=== PATIENT | female | born 1960 | race Asian ===

== ENCOUNTER 2017-08-17 12:33 | Emergency (ER) | END 2017-08-17 18:40 | disposition home or self-care (01) ==

== ENCOUNTER 2018-07-02 07:51 | Inpatient (IN) | payer OTHER ==
[~2018-07-02] VITALS: Ht 157.5 cm; Wt 61.1 kg
[~2018-07-02 07:51] MED LIST: ATEN-122; GLYB1TAB3 PO; LISI20TA; SIMV20TA2
[2018-07-02] MEDS ORDERED: ALBUTEROL 0.5% (NEB) 2.5 MG/0.5 ML AMP INH STA (08:19)
--- NOTE | 2018-07-02 08:19 | ERD ---
ER Documentation Chief Complaint Chief Complaint COUGH & CONGESTION X1 DAY HPI 57-year-old female history of diabetes and hypertension with one week history of cough and congestion and a 4-day history of fevers diagnosed with pneumonia and started on antibiotics by her PMD presented to the ED complaining of anorexia, ongoing generalized weakness, nonproductive cough and shortness of breath. Denies chest pain, palpitations, leg pain or swelling. No abdominal pain, nausea, vomiting, diarrhea or constipation. No fevers or chills. ROS All systems reviewed and are negative except as per history of present illness. Medications Home Meds Active Scripts Guaifenesin* (Robitussin*) 100 Mg/5 Ml Syrup, 200 MG PO Q4H PRN for COUGH, #100 ML [facility] 07/04/18 Insulin Aspart* (Novolog Insulin Pen*) 100 Unit/Ml Soln, 4 UNIT SC WITH MEALS, #4 VIAL Prov:[facility]. 07/04/18 [Insulin Glargine] 100 UNITS/ML SOLN No Conflict Check, 30 UNITS SC DAILY@1999, #9 VIAL 1 [facility]. 07/04/18 Losartan Potassium* (Losartan Potassium*) 25 Mg Tablet, 25 MG PO DAILY, #30 TAB Prov[facility]. 07/04/18 Aspirin* (Aspirin* EC) 81 Mg Tablet.dr, 81 MG PO DAILY, #30 TAB 2 Refills [facility]. 07/04/18 Atorvastatin Calcium* (Atorvastatin Calcium*) 20 Mg Tablet, 20 MG PO QHS, #30 TAB 2 Refills Prov[facility]. 07/04/18 Metformin* (Glucophage*) 850 Mg Tablet, 850 MG PO WITH BREAKFAST DINNE, #60 TAB 1 Refill Prov[facility]. 07/04/18 Amoxicillin/Potassium Clav (Amox-Clav 875-125 mg Tablet) 875-125 mg Tab, 1 TAB PO BID, #20 TAB [facility]. 07/04/18 Discontinued Reported Medications Insulin Degludec (Tresiba Flextouch U-100) 100 Unit/1 Ml Insuln.pen, 32 UNITS SC AM 07/02/18 Allergies Allergies: Coded Allergies: No Known Drug Allergies (Verified Allergy, Mild, 07/02/18) PMhx/Soc Reviewed in chart. As per HPI. History of Surgery: No Anesthesia Reaction: No Hx Neurological Disorder: No Hx Respiratory Disorders: No Hx Cardiac Disorders: Yes (htn, high cholesterol) Hx Psychiatric Problems: No Hx Miscellaneous Medical Probl: Yes (diabetes) Hx Alcohol Use: No Hx Substance Use: No Hx Tobacco Use: No Smoking Status: Never smoker FmHx Mother: Diabetes. No family history of stroke or cancer Physical Exam Vitals Temperature: 97.5. Pulse: 105. Respirations: 20. Blood pressure: 159/89. O2 saturation 95% on room air. Physical Exam Const: Alert, anxious, moderate distress. Head: Atraumatic Eyes: Normal Conjunctiva ENT: Normal External Ears, Nose and Mouth. Pharynx is clear without erythema or exudate. Mucous membranes are moist. Neck: Full range of motion. No meningismus. No JVD. Resp: Breath sounds diminished bilaterally with scattered rhonchi but no rales. 1+ expiratory wheezes. Cardio: Tachycardic. Regular rate and rhythm, no murmurs, rubs or gallops. Abd: Soft, non tender, non distended. No rebound or guarding. Normal bowel sounds Skin: No petechiae or rashes Back: No midline or flank tenderness Ext: No cyanosis, or edema Neur: Awake and alert. No focal deficit Psych: Anxious but not depressed. Results 24 hrs Laboratory Tests Test 07/02/18 08:12 07/02/18 08:21 Bedside Glucose 276 mg/dL White Blood Count 6.1 10^3/ul Red Blood Count 4.40 10^6/ul Hemoglobin 12.6 g/dl Hematocrit 37.3 % Mean Corpuscular Volume 84.8 fl Mean Corpuscular Hemoglobin 28.6 pg Mean Corpuscular Hemoglobin Concent 33.8 g/dl Red Cell Distribution Width 12.7 % Platelet Count 280 10^3/UL Mean Platelet Volume 9.7 fl Immature Granulocytes % 0.300 % Neutrophils % 67.1 % Lymphocytes % 25.2 % Monocytes % 7.0 % Eosinophils % 0.2 % Basophils % 0.2 % Nucleated Red Blood Cells % 0.0 /100WBC Immature Granulocytes # 0.020 10^3/ul Neutrophils # 4.1 10^3/ul Lymphocytes # 1.5 10^3/ul Monocytes # 0.4 10^3/ul Eosinophils # 0.0 10^3/ul Basophils # 0.0 10^3/ul Nucleated Red Blood Cells # 0.0 10^3/ul Sodium Level 140 mmol/L Potassium Level 4.4 mmol/L Chloride Level 100 mmol/L Carbon Dioxide Level 29 mmol/L Anion Gap 11 Blood Urea Nitrogen 10 mg/dl Creatinine 0.63 mg/dl Est Glomerular Filtrat Rate mL/min > 60 mL/min Glucose Level 280 mg/dl Calcium Level 9.8 mg/dl Troponin I < 0.012 ng/ml B-Type Natriuretic Peptide 94 PG/ML Current Medications Medications Dose Sig/Paulina Start Time Status Last (Trade) Ordered Route PRN Stop Time Admin Dose Reason Admin Albuterol 10 mg ONCE STAT 07/02/18 DC 07/02/18 (Proventil INH 08:19 09:04 0.5% (Neb)) 07/02/18 08:22 Ceftriaxone 50 ml @ ONCE STAT 07/02/18 DC 07/02/18 Sodium 100 mls/hr IVPB 10:00 10:15 07/02/18 10:29 Azithromycin 250 ml @ ONCE STAT 07/02/18 DC 07/02/18 250 mls/hr IV 10:00 10:44 07/02/18 10:59 Albuterol/ 3 ml Q6HWA RESP 07/02/18 DC 07/04/18 Ipratropium THERAPY HHN 14:00 13:31 (Duoneb) 07/04/18 17:29 Albuterol/ 3 ml Q2H RESP 07/02/18 DC Ipratropium THERAPY PRN 14:00 (Duoneb) HHN 07/04/18 17:29 shortness of breath Discontinue ONCE ONCE 07/02/18 DC Miscellaneous current oral XX 14:00 sulfonylur... 07/02/18 14:01 Information (* Miscellaneous Pharmacy Order) ONCE ONCE 07/02/18 DC Miscellaneous HYPOGLYCEMIA XX 14:00 PROTOCOL 07/02/18 14:01 Information w... (* Miscellaneous Pharmacy Order) Discontinue ONCE ONCE 07/02/18 DC Miscellaneous all previ... XX 14:00 07/02/18 14:01 Information (* Miscellaneous Pharmacy Order) IV Flush 3 ml PER 07/02/18 DC (NS 3 ml) PROTOCOL IV 14:00 07/04/18 17:29 Ondansetron 4 mg Q6H PRN 07/02/18 DC HCl (Zofran IV 14:00 Inj) NAUSEA/VOMITI 07/04/18 17:29 NG 650 mg Q6H PRN 07/02/18 DC Acetaminophen PO .PAIN 1-3 14:00 (Tylenol OR TEMP 07/04/18 17:29 Tab) 1 ea NOTE XX 07/02/18 DC Miscellaneous 14:00 Information 07/04/18 17:29 Glucose 15 gm Q15M PRN 07/02/18 DC (Glutose) PO DECREASED 14:00 GLUCOSE 07/04/18 17:29 Glucose 22.5 gm Q15M PRN 07/02/18 DC (Glutose) PO DECREASED 14:00 GLUCOSE 07/04/18 17:29 Dextrose 25 ml Q15M PRN 07/02/18 DC (D50w IV DECREASED 14:00 Syringe) GLUCOSE 07/04/18 17:29 Dextrose 50 ml Q15M PRN 07/02/18 DC (D50w IV DECREASED 14:00 Syringe) GLUCOSE 07/04/18 17:29 Glucagon 1 mg Q15M PRN 07/02/18 DC (Glucagen) IM DECREASED 14:00 GLUCOSE 07/04/18 17:29 Glucose 15 gm Q15M PRN 07/02/18 DC (Glutose) BUCCAL 14:00 DECREASED 07/04/18 17:29 GLUCOSE Procedures/MDM DOCUMENTS REVIEWED: ED nurse, prior records EKG: Time: 08:47. Sinus rhythm. Ventricular rate 85. Nonspecific T wave changes. No acute ST segment elevation or depression. No ectopy. My Interpretation IMAGING: PROCEDURE: XR Chest. CLINICAL INDICATION: shortness of breath TECHNIQUE: Single portable view of the chest was obtained COMPARISON: CR CHEST 05/09/2013 FINDINGS: There is mild cardiomegaly. There is mild pulmonary vascular congestion. There are bilateral perihilar and lower lobe increased interstitial changes. There is no pleural effusion.. There is no pneumothorax. RPTAT: AA IMPRESSION: Mild cardiomegaly with pulmonary vascular congestion. Patchy bilateral perihilar and lower lobe infiltrates. .Baljit Gomez MD MD Date Time Electronically viewed and signed by .Baljit Gomez MD, MD on 07/02/2018 08:38 .S/ MEDICAL DECISION MAKIN-year-old female history of diabetes and hypertension with one week history of cough and congestion and a 4-day history of fevers diagnosed with pneumonia and started on antibiotics by her PMD presented to the ED complaining of anorexia, ongoing generalized weakness, nonproductive cough and shortness of breath. CBC to evaluate for leukocytosis, anemia and thrombocytopenia is unremarkable. Chemistry reveals mild hyperglycemia but no anion gap acidosis, electrolyte abnormalities or renal insufficiency. Troponin is not elevated. EKG reveals no evidence of ischemia or dysrhythmia. Influenza is negative. Chest x-ray reveals mild cardiomegaly with pulmonary vascular congestion and patchy lower lobe infiltrates. No chest pain, ischemic EKG changes, elevated troponin or acute coronary syndrome. Respiratory symptoms improved with nebulized beta agonists but she is still symptomatic. Findings consistent with pneumonia although a component of congestive heart failure will need to be ruled out. No criteria for systemic inflammatory response syndrome. Antibiotics for community-acquired pneumonia are administered after cultures. Admit to [facility] for further evaluation and management. REEXAMINATION/REEVALUATION: Time: 09:40. Vital signs as documented. Mild improvement with nebulized albuterol Time: 11:08. Vital signs as per nursing note. Still complaining of shortness of breath and cough. Time: 13:20. Vital signs as per nursing note. Ongoing shortness of breath with increasing tachypnea and mild wheezing. OBSERVATION NOTE: At 08:37 the patient was entered into observation status to es tablish the need for admission. During this time the patient was treated for acute dyspnea and cough. Additionally, extensive evaluation including, CBC, chemistry, blood cultures, EKG, troponin and chest x-ray were preformed with results interpreted as above. Vitals signs were monitored and multiple, frequent reexaminations were performed. At 13:20 the patient was reexamined; on going shortness of breath and cough. Based on these findings the patient was discharged from observation as it was determined that the patient met criteria for admission. Family history significant for diabetes but no hypertension or stroke TOTAL OBSERVATION TIME: 4.5 Hours. PATIENT CARE TRANSITIONED: Time: 13:35, Dr. Overton. Counseled patient regarding diagnosis, diagnostic results and plan for admission. Departure Diagnosis: Primary Impression: Shortness of breath Additional Impressions: Cough Pneumonia Pneumonia type: due to unspecified organism Laterality: bilateral Lung location: lower lobe of lung Qualified Codes: J18.1 - Lobar pneumonia, unspecified organism Diabetes mellitus type 2 in nonobese Condition: Serious SANCHO SANTIAGO MD Jul 02, 2018 08:19
[2018-07-02] MEDS ORDERED: INSU100I31 SC (08:57)
[2018-07-02] MEDS ORDERED: CEFTRIAXONE 1 GM/50 ML (PMX) 50 ML IVPB STA (10:00)
[2018-07-02] MEDS ORDERED: AZITHROMYCIN 500MG/NS (PMX) 250 ML IV STA (10:00)
[2018-07-02] MEDS ORDERED: NACL 0.9% 3 ML SYG IV SCH (14:00)
[2018-07-02] MEDS ORDERED: GLUCOSE GEL 15 GRAM TUBE BUCCAL PRN (14:00)
[2018-07-02] MEDS ORDERED: ALBUTEROL/IPRATROPIUM (NEB) 3 ML AMP HHN PRN (14:00)
[2018-07-02] MEDS ORDERED: GLUCAGON 1 MG INJ IM PRN (14:00)
[2018-07-02] MEDS ORDERED: ONDANSETRON 4 MG INJ IV PRN ×2 (14:00→15:00)
[2018-07-02] MEDS ORDERED: ACETAMINOPHEN 325 MG TAB PO PRN ×2 (14:00→15:00)
[2018-07-02] MEDS ORDERED: GLUCOSE GEL 15 GRAM TUBE PO PRN ×2 (14:00)
[2018-07-02] MEDS ORDERED: DEXTROSE 50% 50 ML SYRINGE IV PRN ×2 (14:00)
[2018-07-02] MEDS: ALBUTEROL/IPRATROPIUM (NEB) 3 ML AMP HHN SCH ×2 (15:44→20:28)
[2018-07-02 16:45] VITALS: Ht 157.5 cm; Wt 61.1 kg
[2018-07-02] MEDS ORDERED: GUAIFENESIN/CODEINE 5ML CUP PO PRN (17:00)
[2018-07-02] MEDS ORDERED: SOD CHLORIDE 0.9% 1,000 ML IV SCH (17:00)
--- NOTE | 2018-07-02 17:05 | HP ---
Date/Time of Note Date/Time of Note DATE: 07/02/18 TIME: 17:05 Assessment/Plan VTE Prophylaxis Pharmacological prophylaxis: other Lines/Catheters IV C[facility]ter Type (from [facility] Saline Lock Assessment/Plan Hospital Course Patient is a Nepali female with a past medical history significant for hypertension, diabetes mellitus who presents to [facility] for shortness of breath, cough, fevers and congestion. Patient stated that she had approximate 1 week of cough and congestion and a 4-day history of fevers and was diagnosed with pneumonia by her outpatient primary care provider. Patient continued to get worse and subsequently came to the ED. Currently patient is on room air however states that her cough is causing her some discomfort in the chest. Patient has no chest pain while not coughing. Patient is also complaining of generalized fatigue and weakness and some shortness of breath. Patient denies abdominal pain, leg pain, bowel or bladder dysfunction, chest pain is not associated with cough, palpitations or abnormal swelling. Patient has a past surgical history of breast augmentation. Objective Physical exam General: Patient is laying in bed and answers questions appropriately Mentation: Patient is alert and oriented 4, Head: Normocephalic atraumatic Eyes: EOMI, pupils reactive to light Neck: Supple, nontender, midline Respiratory: Mild wheezing to auscultation bilaterally Cardiovascular: regular rate, no obvious murmurs Gastrointestinal: non-tender to palpation, bowel sounds heard. Neurological: Moves all extremities spontaneously Skin: No new skin lesions Assessment and plan Bronchitis with possible underlying infectious pneumonia -Breathing treatment -IV antibiotic -Cough medication as needed -Chest x-ray showing some pulmonary edema, subsequently got a chest CT to rule out pulmonary edema, found infectious or inflammatory findings including bronchitis., Also BNP was not elevated which makes heart failure less likely Questionable enlarged heart -Echocardiogram pending Hypertension -Patient does not not remember her blood pressure medication, will treat as needed Diabetes mellitus -Continue her home dose of 30 units of long-acting at night, with sliding scale Disposition -Monitor patient and patient, continue IV antibiotic, discharge once patient feels better and resolving shortness of breath. Result Diagram: 07/02/18 0821 07/02/18 0821 Results 24hrs Laboratory Tests Test 07/02/18 08:12 07/02/18 08:21 Bedside Glucose 276 H White Blood Count 6.1 # Red Blood Count 4.40 Hemoglobin 12.6 Hematocrit 37.3 Mean Corpuscular Volume 84.8 Mean Corpuscular Hemoglobin 28.6 L Mean Corpuscular Hemoglobin Concent 33.8 Red Cell Distribution Width 12.7 Platelet Count 280 Mean Platelet Volume 9.7 Immature Granulocytes % 0.300 Neutrophils % 67.1 Lymphocytes % 25.2 Monocytes % 7.0 Eosinophils % 0.2 Basophils % 0.2 Nucleated Red Blood Cells % 0.0 Immature Granulocytes # 0.020 Neutrophils # 4.1 Lymphocytes # 1.5 Monocytes # 0.4 Eosinophils # 0.0 Basophils # 0.0 Nucleated Red Blood Cells # 0.0 Sodium Level 140 Potassium Level 4.4 Chloride Level 100 Carbon Dioxide Level 29 Anion Gap 11 Blood Urea Nitrogen 10 Creatinine 0.63 Est Glomerular Filtrat Rate mL/min > 60 Glucose Level 280 H Calcium Level 9.8 Troponin I < 0.012 B-Type Natriuretic Peptide 94 HPI/ROS Admit Date/Time Admit Date/Time Jul 02, 2018 at 14:46 PMH/Family/Social Past Medical History Medications Current Medications Albuterol/ Ipratropium (Duoneb) 3 ml Q6HWA RESP THERAPY HHN Last administered on 07/02/18at 15:44; Admin Dose 3 ML; Start 07/02/18 at 14:00 Albuterol/ Ipratropium (Duoneb) 3 ml Q2H RESP THERAPY PRN HHN shortness of breath; Start 07/02/18 at 14:00 Diagnostic Test (Pha) (Accu-Chek) 1 ea 02 XX ; Start 07/03/18 at 02:00 Insulin Glargine (Lantus) 30 units DAILY@2000 SC ; Start 07/02/18 at 20:00 Insulin Aspart (Novolog Insulin Pen) NOVOLOG *MILD* ALGORITHM WITH MEALS BEDTIME SC ; Start 07/02/18 at 18:00 IV Flush (NS 3 ml) 3 ml PER PROTOCOL IV ; Start 07/02/18 at 14:00 Ondansetron HCl (Zofran Inj) 4 mg Q6H PRN IV NAUSEA/VOMITING; Start 07/02/18 at 14:00 Acetaminophen (Tylenol Tab) 650 mg Q6H PRN PO .PAIN 1-3 OR TEMP; Start 07/02/18 at 14:00 Budesonide (Pulmicort (Neb)) 0.5 mg BID RESP THERAPY HHN ; Start 07/02/18 at 20:00 Levofloxacin/ Dextrose 150 ml @ 100 mls/hr Q24H IVPB ; Start 07/03/18 at 09:00 Miscellaneous Information 1 ea NOTE XX ; Start 07/02/18 at 14:00 Glucose (Glutose) 15 gm Q15M PRN PO DECREASED GLUCOSE; Start 07/02/18 at 14:00 Glucose (Glutose) 22.5 gm Q15M PRN PO DECREASED GLUCOSE; Start 07/02/18 at 14:00 Dextrose (D50w Syringe) 25 ml Q15M PRN IV DECREASED GLUCOSE; Start 07/02/18 at 14:00 Dextrose (D50w Syringe) 50 ml Q15M PRN IV DECREASED GLUCOSE; Start 07/02/18 at 14:00 Glucagon (Glucagen) 1 mg Q15M PRN IM DECREASED GLUCOSE; Start 07/02/18 at 14:00 Glucose (Glutose) 15 gm Q15M PRN BUCCAL DECREASED GLUCOSE; Start 07/02/18 at 14:00 Ondansetron HCl (Zofran Inj) 4 mg BRIDGE ORDER PRN IV NAUSEA/VOMITING; Start 07/02/18 at 15:00; Stop 07/03/18 at 14:59 Acetaminophen (Tylenol Tab) 650 mg ER BRIDGE PRN PO .MILD PAIN 1-3 OR TEMP; Start 07/02/18 at 15:00; Stop 07/03/18 at 14:59 Sodium Chloride 1,000 ml @ 50 mls/hr Q20H IV ; Start 07/02/18 at 17:00; Stop 07/03/18 at 12:59; Status UNV Guaifenesin/ Codeine Phosphate (Robitussin Ac Liquid Cup) 5 ml Q4H PRN PO cough; Start 07/02/18 at 17:00; Status UNV Coded Allergies: No Known Drug Allergies (Verified Allergy, Mild, 07/02/18) Social History Smoking Status: Never smoker Exam/Review of Systems Vital Signs Vitals Vital Signs Date Temp Pulse Resp B/P (MAP) Pulse Ox O2 O2 Flow FiO2 Time Delivery Rate 07/02/18 98.2 83 21 133/77 95 Room Air 16:10 (95) 07/02/18 21 15:46 07/02/18 2 08:25 BUSTER VELEZ Jul 02, 2018 17:05
--- NOTE | 2018-07-02 17:06 | RADRPT ---
Echocardiogram Report Patient Name: GARO GUY NPatient ID: [id number] : 1960 (57y 8m)Study Date: 07/02/2018 2:10:01 PM Gender: FAccession #: [id number] Tech: Edwina Reyes CARIN Location: [facility] Ref.Physician: BUSTER VELEZ Height(Cm): BSA: Weight(Kg): Quality: AdequateAccount #: Procedures: Echocardiographic Report: Transthoracic echocardiogram with complete 2D, M-Mode, and doppler examination. Indications: Congestive Heart Failure. Measurements: 2D/M Mode Doppler Measurement Value Normal Range Measurement Value Normal Range LVIDd 2D 3.7 [ 3.8 - 5.2 ] cm AV Peak Georges 1.5 [ 100.0 - 170.0 ] cm/sec LVIDs 2D 2.2 [ 2.2 - 3.5 ] cm AV Peak PG 8.0 [ 2.0 - 9.0 ] mmHg LVPWd 2D 1.2 [ 0.6 - 0.9 ] cm LVOT Peak Georges 0.9 [ 70.0 - 110.0 ] cm/sec IVSd 2D 1.1 [ 0.6 - 0.9 ] cm LVOT Peak PG 3.0 [ 2.0 - 6.0 ] mmHg AoR Diam 2D 2.7 [ 2.3 - 3.1 ] cm MV E Peak Georges 0.7 [ 60.0 - 130.0 ] cm/sec EDV 2D 58.1 [ 46.0 - 106.0 ] ml MV A Peak Georges 0.8 [ 100.0 - 120.0 ] cm/sec ESV 2D 15.7 [ 14.0 - 42.0 ] ml MV E/A 0.9 [ 0.8 - 1.5 ] ratio EF 2D 73.0 [ 54.0 - 74.0 ] percent MV Decel Time 116 [ 104 - 258 ] msec LA Dimen 2D 2.8 [ 2.7 - 3.8 ] cm Lat E` Georges 0.1 [ 10.0 - 15.0 ] cm/sec Lateral E/E` 9.9 [ 1.0 - 2.0 ] ratio MV E/A 0.9 [ 0.8 - 1.5 ] ratio TR Peak Georges 2.2 [ 100.0 - 280.0 ] cm/sec TR Peak PG 20.0 mmHg RVSP 30.0 [ 10.0 - 36.0 ] mmHg RA Pressure 10.0 mmHg Findings: Left Ventricle: Normal left ventricular systolic function. Normal left ventricular cavity size. Mild concentric left ventricular hypertrophy. Ejection fraction is visually estimated at 60 %. Tissue Doppler/Mitral Doppler indices are consistent with impaired relaxation (Stage I diastolic dysfunction). Right Ventricle: Normal right ventricular size. Normal right ventricular systolic function. Left Atrium: The left atrium is normal in size. Right Atrium: The right atrium is normal in size. Mitral Valve: Mitral valve leaflets appear mildly thickened. Mild mitral annular calcification. Trace mitral regurgitation. Aortic Valve: Normal appearance of the aortic valve. No significant aortic stenosis or insufficiency. Tricuspid Valve: Normal appearance and function of the tricuspid valve with trace physiologic regurgitation. Normal right ventricular systolic pressure. Pulmonic Valve: Normal pulmonic valve appearance. Pericardium: Normal pericardium with no significant pericardial effusion. Aorta: Normal aortic root. IVC: Normal size and normal respiratory collapse consistent with normal right atrial pressure. Conclusions: Normal left ventricular systolic function. Normal left ventricular cavity size. Mild concentric left ventricular hypertrophy. Ejection fraction is visually estimated at 60 %. Tissue Doppler/Mitral Doppler indices are consistent with impaired relaxation (Stage I diastolic dysfunction). Normal appearance of the aortic valve. No significant aortic stenosis or insufficiency. Normal appearance and function of the tricuspid valve with trace physiologic regurgitation. Normal right ventricular systolic pressure. Mitral valve leaflets appear mildly thickened. Mild mitral annular calcification. Trace mitral regurgitation. Electronically Signed By: Patel Og 2018-07-02 17:05:35 PDT
[2018-07-02] MEDS ORDERED: hydrALAzine 20 MG INJ IV PRN (17:30)
[2018-07-02] MEDS: INSULIN ASPART [NOVOLOG] 3 ML PEN SC SCH ×2 (17:36→21:18)
[2018-07-02 19:57] VITALS: BP 153/81; PULSE 81; RESP 18
[2018-07-02] MEDS: BUDESONIDE (NEB) 0.5MG/2ML AMP HHN SCH (20:28)
[2018-07-02] MEDS: INSULIN GLARGINE [LANTus] (100 UNITS/ML) SYG SC SCH (21:17)
[2018-07-03 01:52] VITALS: BP 142/74; PULSE 78; RESP 18
[2018-07-03] MEDS: ACCU-CHEK XX SCH (02:00)
[2018-07-03] MEDS ORDERED: VANCOMYCIN IV PER PHARMACY XX SCH (07:30)
[2018-07-03 08:11] VITALS: BP 126/75; PULSE 85; RESP 18
[2018-07-03] MEDS: INSULIN ASPART [NOVOLOG] 3 ML PEN SC SCH ×4 (08:19→20:45)
[2018-07-03] MEDS: BUDESONIDE (NEB) 0.5MG/2ML AMP HHN SCH ×2 (08:26→20:55)
[2018-07-03] MEDS: ALBUTEROL/IPRATROPIUM (NEB) 3 ML AMP HHN SCH ×3 (08:26→20:55)
[2018-07-03] MEDS ORDERED: INFLUENZA VIRUS VACCINE 0.5 ML (DISPENSING) IM* ONE (09:00)
[2018-07-03] MEDS ORDERED: VANCOMYCIN HCL 1.25 GM in SOD CHLORIDE 0.9% 250 ML IVPB SCH (10:00)
[2018-07-03] MEDS: LEVOFLOXACIN 750MG/D5W (PMX) 150 ML IVPB SCH (10:41)
[2018-07-03 14:39] VITALS: BP 136/73; PULSE 80; RESP 20
[2018-07-03 19:45] VITALS: BP 159/84; PULSE 78; RESP 18
[2018-07-03] MEDS: INSULIN GLARGINE [LANTus] (100 UNITS/ML) SYG SC SCH (20:45)
[2018-07-03 21:08] VITALS: BP 152/77; PULSE 71
[2018-07-03] MEDS ORDERED: GABAPENTIN 300 MG CAP PO SCH (22:00)
[2018-07-04] MEDS: VANCOMYCIN 750 MG (PMX) 250 ML IVPB SCH ×2 (00:41→12:17)
[2018-07-04 01:18] VITALS: BP 133/79; PULSE 78; RESP 18
[2018-07-04] MEDS: ACCU-CHEK XX SCH ×3 (01:35→17:29)
[2018-07-04] MEDS: LEVOFLOXACIN 750MG/D5W (PMX) 150 ML IVPB SCH (08:08)
[2018-07-04] MEDS: INSULIN ASPART [NOVOLOG] 3 ML PEN SC SCH ×5 (08:14→17:29)
[2018-07-04 08:18] VITALS: BP 129/72; PULSE 86; RESP 17
[2018-07-04] MEDS: BUDESONIDE (NEB) 0.5MG/2ML AMP HHN SCH (08:45)
[2018-07-04] MEDS: ALBUTEROL/IPRATROPIUM (NEB) 3 ML AMP HHN SCH ×2 (08:45→13:31)
[2018-07-04] MEDS ORDERED: Insulin Glargine SC (09:51)
[2018-07-04] MEDS ORDERED: LOSA25TA12 PO (09:51)
[2018-07-04] MEDS ORDERED: ATOR20TA38 PO (09:51)
[2018-07-04] MEDS ORDERED: GUAI-637 PO (09:51)
[2018-07-04] MEDS ORDERED: METF-480 PO (09:51)
[2018-07-04] MEDS ORDERED: NOVO3I SC (09:51)
[2018-07-04] MEDS ORDERED: AMOX1TAB10 PO (09:51)
[2018-07-04] MEDS ORDERED: ASPI-817 PO (09:51)
--- NOTE | 2018-07-04 09:54 | PDOCDIS ---
Discharge Instructions CONDITION [id number] Patient Condition: [id number] Stable HOME CARE INSTRUCTIONS: [id number] Special Diet: [id number] Activity Restrictions: [id number] Slowly Increase Activity Rest between Activity OTHER ORDERS: Other Orders: 1. Patient needs home DM education 2. patient needs to see PCP in 1 week to f/u on blood cultures and get repeat CXR to ensure continued resolution of symptoms. . LADY PERDUE Jul 04, 2018 09:54
[2018-07-04] MEDS ORDERED: VANCOMYCIN 1 GM 250 ML IVPB SCH (10:00)
[2018-07-04] MEDS: metFORMIN 850 MG TAB PO SCH ×2 (10:31→17:29)
[2018-07-04 14:18] VITALS: BP 121/70; PULSE 98; RESP 16
--- NOTE | 2018-07-08 12:57 | PN ---
DATE: 07/03/2018 SUBJECTIVE: The patient continues to do well. She is still having quite a bit of coughing. PHYSICAL EXAMINATION: VITAL SIGNS: Temperature 98.6, pulse 80, respirations 20, blood pressure 136/73, saturations 97% on room air. GENERAL: She is ill looking, but alert and oriented. HEENT: Head is normocephalic. Pupils are reactive. NECK: Supple. CHEST: Still diminished bilaterally with coarse b/s and occasional wheezes. CARDIOVASCULAR: S1 and S2 ABDOMEN: Soft, nontender. EXTREMITIES: No lower extremity edema. IMPRESSION: 1. Bronchitis with possible underlying pneumonia. 2. Cardiomegaly with stage 1 diastolic dysfunction on echo. 3. Hypertension with fair control. 4. Diabetes mellitus on insulin therapy, still with suboptimal control. PLAN: At this time is to continue aggressive therapy. Blood cultures did come back positive for coagulase negative staph. We will plan for repeat blood cultures tomorrow. If negative, she may be discharged on oral medications. Dictated By: LADY PERDUE MD, BA/NTS Conf#: [id number] DID#: [id number] CC: BUSTER VELEZ MD;*EndCC* MTDD
--- NOTE | 2018-07-08 13:04 | DS ---
DATE OF ADMISSION: 07/02/2018 DATE OF DISCHARGE: 07/04/2018 FINAL DIAGNOSES: 1. Bronchitis/pneumonia improved. 2. Cardiomegaly with stage 1 diastolic dysfunction. 3. Diabetes mellitus with good control. 4. Hypertension with good control as well. DISPOSITION: To home. DISCHARGE MEDICATIONS: 1. Amoxicillin/clavulanate 1 tab b.i.d. 875 mg. 2. Aspirin 81 daily. 3. Lipitor 20 at bedtime. 4. Robitussin as needed. 5. NovoLog 4 units with meals. 6. Lantus 30 units subQ daily. 7. Losartan 25 daily. 8. Metformin 850 mg with breakfast and dinner. FOLLOWUP: Will be with primary doctor in the next 1 to 2 weeks to ensure continued resolution of symptoms. DIET: Recommended diet: 1800 ADA diet. DISCHARGE INSTRUCTIONS: Have been communicated to patient in detail. Time spent on discharge coordination was about 35 minutes. Dictated By: LADY PERDUE MD BA/NTS Conf#: [id number] DID#: [id number] CC: BUSTER VELEZ MD;*EndCC* MTDD
== END 2018-07-04 17:25 | disposition home or self-care (01) | DRG 195 ==
LOC: E/R 07:51 → 2NE 14:46 → EDBEDREQ 14:59 → OBSVTOIN 17:00
PROVIDERS: ADMIT Internal Medicine; ATTEND Family Medicine
DX: J18.9 Pneumonia, unspecified organism (principal); J40 Bronchitis, not specified as acute or chronic; I10 Essential (primary) hypertension; E11.8 Type 2 diabetes mellitus with unspecified complications; I51.7 Cardiomegaly
CPT/HCPCS: 36415; 71045; 71250; 80048; 80053; 80061; 82962; 83036; 83735; 83880; 84484; 85025; 87040; 87400; 90686; 93005; 93306; 94640; 94644; 94664; 96365; 96366; 96368; 99217; G0378; J0456; J0696; J1815; J1956; J3370; J7030; J7050